=== PATIENT | female | born 1960 | race Two or more races ===

== ENCOUNTER → 2017-08-12 | Outpatient (CLI) | payer MEDICAID ==
[~2017-08-12] MED LIST: INSU70IN2; LISI40TA; METF-372; PRAVASTATIN SODIUM 40 MG TAB
== END | disposition home or self-care (01) ==
LOC: Rad HDHVI 10:02
PROVIDERS: ATTEND Internal Medicine Cardiovascular Disease
DX: R07.89 Other chest pain (principal); R94.31 Abnormal electrocardiogram [ECG] [EKG]
CPT/HCPCS: 93306

== ENCOUNTER → 2017-08-22 | Outpatient (CLI) | payer MEDICAID ==
[~2017-08-22] VITALS: Ht 30.5 cm; Wt 0.5 kg
[~2017-08-22] MED LIST changes: +ADENOSINE 102 MG in GIVE UN-DILUTED 0 ML IV ONE; +ADENOSINE 90 MG/30 ML INJ IV ONE
== END | disposition home or self-care (01) ==
LOC: Rad HDHVI 08:35
PROVIDERS: ATTEND Internal Medicine Cardiovascular Disease
DX: I20.9 Angina pectoris, unspecified (principal); M25.511 Pain in right shoulder; R06.02 Shortness of breath; R42 Dizziness and giddiness; R07.89 Other chest pain; I10 Essential (primary) hypertension; E11.9 Type 2 diabetes mellitus without complications; Z79.4 Long term (current) use of insulin
CPT/HCPCS: 78452; 93005; 96374; 96375; A9500; J0153

== ENCOUNTER 2018-03-13 18:05 | Observation (INO) | payer MEDICAID ==
[~2018-03-13] VITALS: Ht 165.1 cm; Wt 122.5 kg
[~2018-03-13 18:05] MED LIST changes: -ADENOSINE 102 MG in GIVE UN-DILUTED 0 ML IV ONE; -ADENOSINE 90 MG/30 ML INJ IV ONE
[2018-03-13 19:05] LABS: Basophils # (auto) 0 uL; Basophils % (auto) 0.5 % (0.0-2.0); Eosinophils # (auto) 0.1 uL; Eosinophils % (auto) 1.2 % (0.0-7.0); Hematocrit 35.3 % (36.0-46.0); Hemoglobin 11.4 g/dL (12.2-16.2); Lymphocytes # (auto) 3.2 uL; Lymphocytes % (auto) 40.6 % (10.0-50.0); Mean Corpuscular Hemoglobin 27.1 pg (28.0-32.0); Mean Corpuscular Hgb Conc. 32.4 g/dL (32.0-36.0); Mean Corpuscular Volume 83.6 fL (80.0-100.0); Monocytes # (auto) 0.6 uL; Monocytes % (auto) 7.8 % (0.0-12.0); Neutrophils # (auto) 3.9 uL; Neutrophils % (auto) 49.9 % (37.0-80.0); Nucleated Red Blood Cells % 0.1 %; Platelet Count (auto) 300 10^3/uL (140-450); Red Blood Cells 4.22 10^6/uL (4.0-5.20); Red Cell Distribution Width 15.1 % (11.8-14.3); White Blood Cell 7.9 10^3/uL (4.4-10.8)
[2018-03-13 19:10] LABS: Urine Bacteria NONE SEEN /hpf (None Seen); Urine Blood Negative /uL (Negative); Urine Mucus FEW (None Seen); Urine Specific Gravity 1.014 (1.001-1.035); Urine WBC 1 /hpf (0 - 5)
[2018-03-13 19:21] LABS: Albumin 3.4 g/dL (3.4-5.0); BUN/Creatinine Ratio 14.6; Bilirubin, Total 0.6 mg/dL (0.2-1.0); Calcium 8.8 mg/dL (8.5-10.1); Magnesium 1.6 mg/dL (1.6-2.6); Potassium 3.7 mmol/L (3.5-5.1); Total Protein 7.8 g/dL (6.4-8.2)
[2018-03-14 03:32] VITALS: BP 144/60
== END 2018-03-14 05:06 | disposition home or self-care (01) | DRG 251 ==
LOC: ER 18:05 → OVERFLOW 18:06 → ER 03-14 05:06
PROVIDERS: ADMIT Emergency Medicine; ATTEND Emergency Medicine
DX: R10.9 Unspecified abdominal pain (principal); E11.9 Type 2 diabetes mellitus without complications; K29.00 Acute gastritis without bleeding; I10 Essential (primary) hypertension; E78.5 Hyperlipidemia, unspecified; Z82.3 Family history of stroke; Z82.49 Family history of ischemic heart disease and other diseases of the circulatory system; Z83.3 Family history of diabetes mellitus; Z90.710 Acquired absence of both cervix and uterus
CPT/HCPCS: 36415; 74176; 80053; 81001; 82150; 82962; 83690; 83735; 85025; 93005; 99285; G0378

== ENCOUNTER → 2018-05-16 12:58 | Emergency (ER) | payer MEDICAID ==
[~2018-05-16] VITALS: Ht 165.1 cm; Wt 122.2 kg
[~2018-05-16 12:58] MED LIST changes: +KETOROLAC TROMETH 30 MG/ML 1ML VIAL IV ONE; +ONDANSETRON HCL 4 MG/2 ML VIAL IV ONE; +SODIUM CHLORIDE 0.9% 1,000 ML IVB ONE; +cefTRIAXone 1GM/50ML D5W 50 ML IV ONE
[2018-05-16 13:41] LABS: Urine Bacteria FEW /hpf (None Seen); Urine Blood Negative /uL (Negative); Urine Hyaline Cast FEW /lpf (0 - 2); Urine Mucus FEW (None Seen); Urine Specific Gravity 1.021 (1.001-1.035); Urine WBC 1 /hpf (0 - 5)
[2018-05-16 13:59] LABS: Basophils # (auto) 0 uL; Basophils % (auto) 0.5 % (0.0-2.0); Eosinophils # (auto) 0 uL; Eosinophils % (auto) 0.6 % (0.0-7.0); Hemoglobin 10.9 g/dL (12.2-16.2); Lymphocytes # (auto) 2.6 uL; Monocytes # (auto) 0.6 uL; Neutrophils # (auto) 3.4 uL; Neutrophils % (auto) 50.9 % (37.0-80.0); Nucleated Red Blood Cells % 0.1 %; Platelet Count (auto) 334 10^3/uL (140-450); Red Cell Distribution Width 16.3 % (11.8-14.3); White Blood Cell 6.8 10^3/uL (4.4-10.8)
[2018-05-16 14:03] LABS: Mean Corpuscular Hemoglobin 25.4 pg (28.0-32.0)
[2018-05-16 14:11] LABS: Alanine Aminotransferase 60 U/L (13-56); Albumin 3.4 g/dL (3.4-5.0); Anion Gap 9 (5-15); Blood Urea Nitrogen 21 mg/dL (7-18); Carbon Dioxide 23 mmol/L (21-32); Chloride 102 mmol/L (98-107); Glucose 241 mg/dL (74-106); INR 1.01 (0.9-1.15); Lipase 95 U/L (73-393); Partial Thromboplastin Time 25.5 sec (23.78-33.04); Prothrombin Time 10.8 sec (9.27-12.13); Sodium 134 mmol/L (136-145)
[2018-05-16 14:18] LABS: Alkaline Phosphatase 107 U/L (45-117); Aspartate Aminotransferase 49 U/L (15-37); BUN/Creatinine Ratio 22.8; Bilirubin, Total 0.5 mg/dL (0.2-1.0); GFR African American 81 mL/min; GFR Non-African American 67 mL/min; Total Protein 7.9 g/dL (6.4-8.2)
[2018-05-16 19:15] VITALS: BP 98/58
== END | disposition home or self-care (01) ==
LOC: ER 12:58
DX: N39.0 Urinary tract infection, site not specified (principal); D50.9 Iron deficiency anemia, unspecified; R94.5 Abnormal results of liver function studies; E11.9 Type 2 diabetes mellitus without complications; E78.5 Hyperlipidemia, unspecified; I10 Essential (primary) hypertension; Z90.49 Acquired absence of other specified parts of digestive tract; Z90.710 Acquired absence of both cervix and uterus; Z79.899 Other long term (current) drug therapy; Z79.84 Long term (current) use of oral hypoglycemic drugs
CPT/HCPCS: 36415; 71045; 74176; 80053; 81001; 82962; 83690; 83735; 84484; 85025; 85610; 85730; 93005; 94761; 96361; 96365; 96366; 96375; 99284; J0696; J1885; J2405; J7030

== ENCOUNTER 2019-05-18 14:08 | Emergency (ER) | payer MEDICAID ==
[~2019-05-18] VITALS: Ht 165.1 cm; Wt 108.9 kg
[~2019-05-18 14:08] MED LIST changes: -KETOROLAC TROMETH 30 MG/ML 1ML VIAL IV ONE; -ONDANSETRON HCL 4 MG/2 ML VIAL IV ONE; -SODIUM CHLORIDE 0.9% 1,000 ML IVB ONE; -cefTRIAXone 1GM/50ML D5W 50 ML IV ONE
[2019-05-18] MEDS ORDERED: SODIUM CHLORIDE 0.9% 500 ML IVB ONE (14:26)
[2019-05-18] MEDS ORDERED: ONDANSETRON HCL 4 MG/2 ML VIAL IV ONE (14:30)
[2019-05-18] MEDS ORDERED: MORPHINE SULFATE 4 MG/ML SYR/VIAL IV ONE (14:30)
[2019-05-18 15:00] LABS: Basophils # (auto) 0 uL; Basophils % (auto) 0.5 % (0.0-2.0); Eosinophils # (auto) 0.1 uL; Hematocrit 38.2 % (36.0-46.0); Hemoglobin 12.6 g/dL (12.2-16.2); Lymphocytes # (auto) 2.7 uL; Lymphocytes % (auto) 36.9 % (10.0-50.0); Mean Corpuscular Hemoglobin 27.3 pg (28.0-32.0); Mean Corpuscular Hgb Conc. 33.1 g/dL (32.0-36.0); Mean Corpuscular Volume 82.7 fL (80.0-100.0); Monocytes # (auto) 0.7 uL; Monocytes % (auto) 9.5 % (0.0-12.0); Neutrophils # (auto) 3.8 uL; Neutrophils % (auto) 52.1 % (37.0-80.0); Nucleated Red Blood Cells % 0.1 %; Platelet Count (auto) 218 10^3/uL (140-450); Red Blood Cells 4.62 10^6/uL (4.0-5.20); Red Cell Distribution Width 16.5 % (11.8-14.3); White Blood Cell 7.2 10^3/uL (4.4-10.8)
[2019-05-18 15:17] LABS: Alanine Aminotransferase 28 U/L (13-56); Albumin 3.2 g/dL (3.4-5.0); Anion Gap 6 (5-15); Aspartate Aminotransferase 24 U/L (15-37); BUN/Creatinine Ratio 12.1; Blood Urea Nitrogen 12 mg/dL (7-18); Calcium 8.8 mg/dL (8.5-10.1); Carbon Dioxide 27 mmol/L (21-32); Chloride 108 mmol/L (98-107); GFR African American 74 mL/min; GFR Non-African American 61 mL/min; Glucose 99 mg/dL (74-106); Potassium 3.5 mmol/L (3.5-5.1); Sodium 141 mmol/L (136-145)
[2019-05-18 15:23] LABS: Alkaline Phosphatase 147 U/L (45-117); Bilirubin, Total 0.5 mg/dL (0.2-1.0); Total Protein 7.5 g/dL (6.4-8.2)
[2019-05-18 17:37] VITALS: BP 148/62
== END 2019-05-18 17:41 | disposition home or self-care (01) ==
LOC: ER 14:08
DX: R10.32 Left lower quadrant pain (principal); R10.12 Left upper quadrant pain; E66.01 Morbid (severe) obesity due to excess calories
CPT/HCPCS: 36415; 74176; 80053; 83690; 84484; 85025; 93005; 96374; 99284; J2405

== ENCOUNTER 2024-03-23 12:20 | Emergency (ER) | payer MEDICAID ==
[~2024-03-23] VITALS: Ht 165.1 cm; Wt 121.8 kg
[~2024-03-23 12:20] MED LIST changes: -LISI40TA; +LISI40TA16
[2024-03-23 13:30] VITALS: BP 134/70; PULSE 82; RESP 17; TEMP 97.9; O2SAT 95
[2024-03-23] MEDS: KETOROLAC TROMETH 30 MG/ML 1ML VIAL IV ONE (13:30)
[2024-03-23 13:39] LABS: Basophils # (auto) 0 10 ^3/uL (0-0.2); Basophils % (auto) 0.8 % (0.0-2.0); Eosinophils # (auto) 0.1 10 ^3/uL (0-0.8); Eosinophils % (auto) 2.1 % (0.0-7.0); Hematocrit 37.6 % (36.0-46.0); Hemoglobin 12.9 g/dL (12.2-16.2); Lymphocytes # (auto) 1.9 10 ^3/uL (0.4-5.4); Lymphocytes % (auto) 39.6 % (10.0-50.0); Mean Corpuscular Hgb Conc. 34.3 g/dL (32.0-36.0); Mean Corpuscular Volume 96.4 fL (80.0-100.0); Monocytes # (auto) 0.5 10 ^3/uL (0-1.3); Monocytes % (auto) 11.1 % (0.0-12.0); Neutrophils # (auto) 2.2 10 ^3/uL (1.6-8.6); Neutrophils % (auto) 46.4 % (37.0-80.0); Nucleated Red Blood Cells % 0.1 %; Platelet Count (auto) 194 10^3/uL (140-450); Red Cell Distribution Width 16.1 % (11.8-14.3); White Blood Cell 4.7 10^3/uL (4.4-10.8)
[2024-03-23 13:52] LABS: Alanine Aminotransferase 109 U/L (7-40); Alkaline Phosphatase 92 U/L (46-116); Anion Gap 9 (5-15); Aspartate Aminotransferase 98 U/L (13-40); BUN/Creatinine Ratio 15.4 (10.0-20.0); Blood Urea Nitrogen 16 mg/dL (9-23); Calcium 9.4 mg/dL (8.7-10.4); Carbon Dioxide 25 mmol/L (20-31); Chloride 104 mmol/L (98-107); Glucose 214 mg/dL (74-106); Potassium 3.6 mmol/L (3.5-5.1); Sodium 138 mmol/L (136-145)
[2024-03-23] MEDS: KETOROLAC TROMETH 60MG/2ML VIAL IM ONE (13:59)
[2024-03-23] MEDS ORDERED: NAP500T GT (14:03)
[2024-03-23 14:22] LABS: Urine Bacteria FEW /hpf (None Seen); Urine Blood Negative /uL (Negative); Urine Clarity Turbid (Clear); Urine Color Light-Yellow (Yellow); Urine Hyaline Cast FEW /lpf (0 - 2); Urine Mucus FEW (None Seen); Urine Protein, UAD Negative (Negative); Urine Specific Gravity 1.015 (1.001-1.035); Urine Urobilinogen Normal (Negative); Urine WBC 105 /hpf (0 - 5)
[2024-03-23] MEDS ORDERED: CEPH250C PO (14:41)
[2024-03-24] MEDS ORDERED: LOSA-534 PO (13:13)
[2024-03-24] MEDS ORDERED: HYDR25TA5 PO (13:13)
[2024-03-24] MEDS ORDERED: ZOLP10TA6 PO (13:13)
[2024-03-24] MEDS ORDERED: ISO20T PO (13:13)
[2024-03-24] MEDS ORDERED: OMEP1CAP70 PO (13:13)
[2024-03-24] MEDS ORDERED: ATOR20TA50 PO (13:13)
== END 2024-03-23 16:14 | disposition home or self-care (01) ==
LOC: ER 12:20
DX: R10.9 Unspecified abdominal pain (principal); I10 Essential (primary) hypertension; E11.9 Type 2 diabetes mellitus without complications; E78.5 Hyperlipidemia, unspecified; Z90.49 Acquired absence of other specified parts of digestive tract; Z90.710 Acquired absence of both cervix and uterus; Z79.1 Long term (current) use of non-steroidal anti-inflammatories (NSAID); Z79.899 Other long term (current) drug therapy
CPT/HCPCS: 36415; 74176; 80053; 81001; 85025; 96372; 99285; J1885

== ENCOUNTER 2024-03-24 09:10 | Inpatient (IN) | payer MEDICAID ==
[~2024-03-24] VITALS: Ht 165.1 cm; Wt 127.9 kg
[~2024-03-24 09:10] MED LIST changes: +CEPH250C PO; +NAP500T GT
[2024-03-24 10:21] VITALS: PULSE 80; RESP 18; O2SAT 98
[2024-03-24] MEDS: ACETAMINOPHEN 325 MG TAB PO ONE (10:37)
[2024-03-24 10:39] LABS: Basophils # (auto) 0 10 ^3/uL (0-0.2); Basophils % (auto) 0.3 % (0.0-2.0); Eosinophils # (auto) 0 10 ^3/uL (0-0.8); Eosinophils % (auto) 0.3 % (0.0-7.0); Hemoglobin 12.5 g/dL (12.2-16.2); Lymphocytes # (auto) 1.4 10 ^3/uL (0.4-5.4); Lymphocytes % (auto) 12.8 % (10.0-50.0); Mean Corpuscular Hemoglobin 33.1 pg (28.0-32.0); Mean Corpuscular Hgb Conc. 34.6 g/dL (32.0-36.0); Mean Corpuscular Volume 95.7 fL (80.0-100.0); Monocytes # (auto) 0.8 10 ^3/uL (0-1.3); Monocytes % (auto) 7.3 % (0.0-12.0); Neutrophils # (auto) 8.6 10 ^3/uL (1.6-8.6); Neutrophils % (auto) 79.3 % (37.0-80.0); Platelet Count (auto) 159 10^3/uL (140-450); Red Blood Cells 3.76 10^6/uL (4.0-5.20); White Blood Cell 10.8 10^3/uL (4.4-10.8)
[2024-03-24 10:51] LABS: Chloride 104 mmol/L (98-107); Potassium 3.6 mmol/L (3.5-5.1); Sodium 139 mmol/L (136-145)
[2024-03-24 10:52] LABS: Anion Gap 10 (5-15); Carbon Dioxide 25 mmol/L (20-31)
[2024-03-24 10:57] LABS: BUN/Creatinine Ratio 23.7 (10.0-20.0); Blood Urea Nitrogen 22 mg/dL (9-23); Glucose 206 mg/dL (74-106)
[2024-03-24] MEDS ORDERED: DEXTROSE (50%) 50ML SYRG IV PRN (12:15)
[2024-03-24] MEDS ORDERED: MORPHINE SULFATE INJ 2 MG/ml SYRG IV PRN (12:15)
[2024-03-24] MEDS ORDERED: NITROGLYCERIN 0.4 MG SL TAB SL PRN (12:15)
[2024-03-24] MEDS ORDERED: HYDR25TA5 PO (13:13)
[2024-03-24] MEDS ORDERED: ZOLP10TA6 PO (13:13)
[2024-03-24] MEDS ORDERED: LOSA-534 PO (13:13)
[2024-03-24] MEDS ORDERED: OMEP1CAP70 PO (13:13)
[2024-03-24] MEDS ORDERED: ISO20T PO (13:13)
[2024-03-24] MEDS ORDERED: ATOR20TA50 PO (13:13)
[2024-03-24] MEDS: ACETAMINOPHEN 325 MG TAB PO PRN (17:24)
[2024-03-24] MEDS: InsuLIN REG 1unit/0.01ml Soln (100units/ml) SC SCH ×2 (17:36→21:42)
[2024-03-24] MEDS: ACCU-CHEK COMFORT CURVE STRIP VI SCH (17:40)
[2024-03-24] MEDS: CEPHALEXIN 250 MG CAP PO SCH (18:20)
[2024-03-24] MEDS ORDERED: MORPHINE SULFATE 4 MG/ML SYR/VIAL IV ONE (18:30)
[2024-03-24] MEDS ORDERED: KETOROLAC TROMETH 30 MG/ML 1ML VIAL IV ONE (18:30)
[2024-03-24] MEDS: ZOLPIDEM TARTRATE 5 MG TAB PO ONE (21:36)
[2024-03-24] MEDS: ATORVASTATIN 20 MG TAB PO SCH (21:36)
[2024-03-24 23:06] VITALS: BP 128/59; PULSE 65; RESP 18; RESP 20; TEMP 98; O2SAT 94; O2SAT 95
[2024-03-25] VITALS (10 sets, daily range): BP systolic 102–112; BP diastolic 38–57; PULSE 64–81; RESP 18–21; TEMP 97.9–98.3; O2SAT 92–99
[2024-03-25] MEDS: HYDROcodone-ACET 5/325MG TAB PO PRN (01:50)
[2024-03-25] MEDS: PANTOPRAZOLE 40 MG TAB PO SCH (05:41)
[2024-03-25 05:49] LABS: Anion Gap 5 (5-15); Carbon Dioxide 29 mmol/L (20-31); Chloride 105 mmol/L (98-107); Potassium 3.3 mmol/L (3.5-5.1); Sodium 139 mmol/L (136-145)
[2024-03-25 05:50] LABS: Calcium 9.3 mg/dL (8.7-10.4)
[2024-03-25 05:55] LABS: BUN/Creatinine Ratio 16.7 (10.0-20.0); Blood Urea Nitrogen 13 mg/dL (9-23); Glucose 163 mg/dL (74-106)
[2024-03-25 06:01] LABS: Basophils # (auto) 0 10 ^3/uL (0-0.2); Basophils % (auto) 0.3 % (0.0-2.0); Eosinophils # (auto) 0.2 10 ^3/uL (0-0.8); Eosinophils % (auto) 1.7 % (0.0-7.0); Hematocrit 35.2 % (36.0-46.0); Hemoglobin 12.3 g/dL (12.2-16.2); Lymphocytes # (auto) 2.6 10 ^3/uL (0.4-5.4); Lymphocytes % (auto) 29.4 % (10.0-50.0); Mean Corpuscular Hemoglobin 33.5 pg (28.0-32.0); Mean Corpuscular Hgb Conc. 35.1 g/dL (32.0-36.0); Mean Corpuscular Volume 95.6 fL (80.0-100.0); Monocytes # (auto) 0.3 10 ^3/uL (0-1.3); Monocytes % (auto) 3.4 % (0.0-12.0); Neutrophils # (auto) 5.7 10 ^3/uL (1.6-8.6); Neutrophils % (auto) 65.2 % (37.0-80.0); Nucleated Red Blood Cells % 0.1 %; Platelet Count (auto) 166 10^3/uL (140-450); Red Blood Cells 3.68 10^6/uL (4.0-5.20); White Blood Cell 8.8 10^3/uL (4.4-10.8)
[2024-03-25] MEDS: ISOSORBIDE MONONITRATE 20 MG TAB PO SCH (10:02)
[2024-03-25] MEDS: hydroCHLOROthiazide 25 MG TAB PO SCH (10:02)
[2024-03-25] MEDS: LOSARTAN POTASSIUM 50 MG TAB PO SCH (10:02)
[2024-03-25] MEDS: ACETAMINOPHEN 325 MG TAB PO SCH (17:21)
[2024-03-25] MEDS: POTASSIUM CHL 20 Meq TABLET PO ONE (17:21)
[2024-03-25] MEDS ORDERED: IBUPROFEN 400 MG TAB PO PRN (18:00)
[2024-03-25] MEDS: ONDANSETRON HCL 4 MG/2 ML VIAL IV PRN (21:00)
[2024-03-26] VITALS (10 sets, daily range): BP systolic 111–125; BP diastolic 41–61; PULSE 60–67; RESP 17–20; TEMP 36.5; O2SAT 94–99
[2024-03-26 07:32] LABS: Calcium 9.4 mg/dL (8.7-10.4); Chloride 103 mmol/L (98-107); Sodium 136 mmol/L (136-145)
[2024-03-26 07:33] LABS: Anion Gap 6 (5-15); Carbon Dioxide 27 mmol/L (20-31)
[2024-03-26 07:38] LABS: BUN/Creatinine Ratio 13.9 (10.0-20.0); Blood Urea Nitrogen 11 mg/dL (9-23); Glucose 232 mg/dL (74-106)
[2024-03-26 07:40] LABS: Basophils # (auto) 0 10 ^3/uL (0-0.2); Basophils % (auto) 0.7 % (0.0-2.0); Eosinophils # (auto) 0.3 10 ^3/uL (0-0.8); Eosinophils % (auto) 4.2 % (0.0-7.0); Hematocrit 36.4 % (36.0-46.0); Hemoglobin 12.4 g/dL (12.2-16.2); Lymphocytes # (auto) 2.1 10 ^3/uL (0.4-5.4); Lymphocytes % (auto) 35.4 % (10.0-50.0); Mean Corpuscular Hemoglobin 33.1 pg (28.0-32.0); Mean Corpuscular Hgb Conc. 34.1 g/dL (32.0-36.0); Mean Corpuscular Volume 97.2 fL (80.0-100.0); Monocytes # (auto) 0.4 10 ^3/uL (0-1.3); Monocytes % (auto) 6.5 % (0.0-12.0); Neutrophils # (auto) 3.2 10 ^3/uL (1.6-8.6); Neutrophils % (auto) 53.2 % (37.0-80.0); Nucleated Red Blood Cells % 0.2 %; Platelet Count (auto) 181 10^3/uL (140-450); Red Blood Cells 3.75 10^6/uL (4.0-5.20); Red Cell Distribution Width 16.2 % (11.8-14.3)
[2024-03-26] MEDS: METOCLOPRAMIDE HCL 10 MG TAB PO ONE (09:47)
[2024-03-26] MEDS: IBUPROFEN 400 MG TAB PO ONE (09:48)
[2024-03-26] MEDS: GABAPENTIN 300 MG CAP PO SCH (09:48)
[2024-03-26] MEDS ORDERED: IBUP1TAB4 PO (16:34)
[2024-03-26] MEDS ORDERED: ACET-1882 PO (16:34)
[2024-03-26] MEDS ORDERED: METO5TAB67 PO (16:34)
== END 2024-03-26 17:35 | disposition home or self-care (01) | DRG 48 ==
LOC: EDBD 09:10 → ER 09:10 → TELE 12:03 → TELE-WESTW 22:55
PROVIDERS: ADMIT Registered Nurse General Practice; ATTEND Student in an Organized Health Care Education/Training Program
PROC: 5A09357 Assistance with Respiratory Ventilation, Less than 24 Consecutive Hours, Continuous Positive Airway Pressure (ICD-10-PCS; principal; 2024-03-25)
DX: G90.89 Other disorders of autonomic nervous system (principal); S09.90XA Unspecified injury of head, initial encounter; E66.9 Obesity, unspecified; I10 Essential (primary) hypertension; K21.9 Gastro-esophageal reflux disease without esophagitis; G47.00 Insomnia, unspecified; E78.5 Hyperlipidemia, unspecified; S16.1XXA Strain of muscle, fascia and tendon at neck level, initial encounter; N39.0 Urinary tract infection, site not specified; W18.39XA Other fall on same level, initial encounter; Z90.49 Acquired absence of other specified parts of digestive tract; Z90.710 Acquired absence of both cervix and uterus; Z79.84 Long term (current) use of oral hypoglycemic drugs; Z68.42 Body mass index [BMI] 45.0-49.9, adult; Y93.89 Activity, other specified; Y92.89 Other specified places as the place of occurrence of the external cause; Y99.8 Other external cause status
CPT/HCPCS: 36415; 70450; 72125; 80048; 82962; 84484; 85025; 93005; 94660; 96372; G0378; J1815; J2405

== ENCOUNTER 2024-11-08 18:03 | Inpatient (IN) | payer MEDICAID, OTHER ==
[~2024-11-08] VITALS: Ht 165.1 cm; Wt 117.2 kg
[~2024-11-08 18:03] MED LIST changes: +ACET-1882 PO; +ATOR20TA50 PO; +HYDR25TA5 PO; +IBUP1TAB4 PO; +ISO20T PO; +LOSA-534 PO; +METO5TAB67 PO; -NAP500T GT; +OMEP1CAP70 PO; +ZOLP10TA6 PO
--- NOTE | 2024-11-08 18:15 | ED.PDOC ---
GI ASSESSMENT HPI Comments 64 y.o female presents to the ED via EMS for a chief complaint of nausea, vomiting, diarrhea, abdominal pain that started 3 days ago. Patient reports pain is diffused, constant, and presents with new onset chest pain and SOB today. Patient denies any bloody stool, hematemesis, chills. EMS reports blood pressure was in the 90's systolic, gave 100cc IV fluids bringing pressure up to 123/88. Patient also received 8mg IV Zofran en route with relief. Time Seen by MD: 18:03 Reviewed Notes: Nurses Notes, Staff Sonographer Notes, Medications, Allergies Allergies: Coded Allergies: NO KNOWN ALLERGIES (Unverified , 11/08/24) Information Source: Patient, Emergency Med Personnel Mode of Arrival: EMS Timing: Days (3) Duration: Since onset Prehospital treatment: IVF, Treatment (zofran 8mg IV ) Quality: Aching Vomitus: Hard Stool: Loose Severity: Moderate Recent: None Recent Hx of: None Pain Location: Diffuse Modifying Factors: Nothing Associated sign and symptoms: Nausea, Vomiting, Diarrhea, Abdominal Pain Past Medical History PAST MEDICAL HISTORY: DM, GERD, High Lipids, Liver Surgical History: Cholecystectomy, Hysterectomy Surgical History (Other): cataracts MANAGER SALES SUPPORT History: No Pertinent MANAGER SALES SUPPORT History Family History Family History: Family hx of Cancer Social History Smoker: Non-Smoker Alcohol: Denies ETOH Use Drugs: Denies Drug Use Lives In: Home Constitutional: reports: weakness; denies: chills, diaphoresis, fatigue, fever, malaise, sweats, others EENTM: denies: blurred vision, double vision, ear bleeding, ear discharge, ear drainage, ear pain, ear ringing, eye pain, eye redness, hearing loss, mouth pain, mouth swelling, nasal discharge, nose bleeding, nose congestion, nose pain, photophobia, tearing, throat pain, throat swelling, voice changes, others Respiratory: reports: shortness of breath; denies: cough, hemoptysis, orthopnea, SOB at rest, SOB with excertion, stridor, wheezing, others Cardiovascular: reports: chest pain; denies: dizzy spells, diaphoresis, Dyspnea on exertion, edema, irregular heart beat, left arm pain, lightheadedness, palpitations, PND, syncope, others Gastrointestinal: reports: abdominal pain, diarrhea, nausea, vomiting; denies: abdomen distended, blood streaked bowels, constipated, dysphagia, difficulty swallowing, hematemesis, melena, poor appetite, poor fluid intake, rectal bleeding, rectal pain, others Genitourinary: denies: abnormal vagina bleeding, burning, dyspareunia, dysuria, flank pain, frequency, hematuria, incontinence, pain, , vagina discharge, urgency, others Neurological: denies: dizziness, fainting, headache, left sided numbness, left sided weakness, numbness, paresthesia, pre-existing deficit, right sided numbness, right sided weakness, seizure, speech problems, tingling, tremors, we akness, others Musculoskeletal: denies: back pain, gout, joint pain, joint swelling, muscle pain, muscle stiffness, neck pain, others Integumetry: denies: bruises, change in color, change in hair/nails, dryness, laceration, lesions, lumps, rash, wounds, others Allergic/Immunocompromised: denies: Difficulty Healing, Frequent Infections, Hives, Itching, others Hematologic/Lymphatic: denies: anemia, blood clots, easy bleeding, easy bruising, swollen glands, others Endocrine: denies: excessive hunger, excessive sweating, excessive thirst, excessive urination, flushing, intolerance to cold, intolerance to heat, unexplained weight gain, unexplained weight loss, others Psychiatric: denies: anxiety, bipolar disorder, depression, hopeless, panic disorder, schizophrenia, sleepless, suicidal, others All Other Systems: Reviewed and Negative Physical Exam General Appearance: Moderate Distress, Obese HEENT: Normal ENT Inspection, Pharynx Normal, TMs Normal Neck: Full Range of Motion, Non-Tender, Normal, Normal Inspection Respiratory: Chest Non-Tender, Lungs Clear, No Accessory Muscle Use, No Respiratory Distress, Normal Breath Sounds Cardiovascular: No Edema, No JVD, No Murmur, No Gallop, Normal Peripheral Pulses, Regular Rate/Rhythm Breast Exam: Deferred Gastrointestinal: Diffuse, No Organomegaly, No Pulsatile Mass, Normal Bowel Sounds, Soft, Tenderness Genitalia: Deferred Pelvic: Deferred Rectal: Deferred Extremities: No calf tenderness, Normal capillary refill, Normal inspection, Normal range of motion, Non-tender, No pedal edema Musculoskeletal : Apperance: Normal Neurologic: Alert, 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 Was a procedure done?: No GI differential Dx Differential Diagnosis: Angina/MT, Esophagitis, Gastritis/PUD, Gastroenteritis, Inflammatory BD, Pancreatitis, Dehydration, Electrolyte Imbalance, Food Poisoning, Bacterial, Viral X-Ray, Labs, Meds, VS Vital Signs Date Time Temp Pulse Resp B/P (MAP) Pulse Ox O2 Delivery O2 Flow Rate FiO2 11/08/24 20:10 98.0 74 16 121/72 (88) 97 98.0 11/08/24 18:38 73 11/08/24 18:11 73 11/08/24 18:03 97.5 72 16 123/88 (100) 97 97.5 11/08/24 18:03 97.5 72 16 123/88 (100) 97 97.5 Lab Test 11/08/24 18:19 Range/Units White Blood Count 7.4 4.4-10.8 10^3/uL Red Blood Count 3.72 L 4.0-5.20 10^6/uL Hemoglobin 12.4 12.2-16.2 g/dL Hematocrit 36.6 36.0-46.0 % Mean Corpuscular Volume 98.5 80.0-100.0 fL Mean Corpuscular Hemoglobin 33.3 H 28.0-32.0 pg Mean Corpuscular Hemoglobin Concent 33.8 32.0-36.0 g/dL Red Cell Distribution Width 13.9 11.8-14.3 % Platelet Count 215 140-450 10^3/uL Mean Platelet Volume 9.8 6.9-10.8 fL Neutrophils (%) (Auto) 53.3 37.0-80.0 % Lymphocytes (%) (Auto) 34.7 10.0-50.0 % Monocytes (%) (Auto) 9.6 0.0-12.0 % Eosinophils (%) (Auto) 1.7 0.0-7.0 % Basophils (%) (Auto) 0.7 0.0-2.0 % Neutrophils # (Auto) 3.9 1.6-8.6 10 ^3/uL Lymphocytes # (Auto) 2.6 0.4-5.4 10 ^3/uL Monocytes # (Auto) 0.7 0-1.3 10 ^3/uL Eosinophils # (Auto) 0.1 0-0.8 10 ^3/uL Basophils # (Auto) 0.1 0-0.2 10 ^3/uL Nucleated Red Blood Cells 0.1 % Prothrombin Time 12.0 H 9.3-11.8 sec Prothrombin Time INR 1.15 0.9-1.15 Activated Partial Thromboplast Time 25.5 24.5-34.5 SEC Sodium Level 142 136-145 mmol/L Potassium Level 2.7 L 3.5-5.1 mmol/L Chloride Level 106 98-107 mmol/L Carbon Dioxide Level 24 20-31 mmol/L Anion Gap 12 5-15 Blood Urea Nitrogen 12 9-23 mg/dL Creatinine 1.28 H 0.550-1.02 mg/dL Glomerular Filtration Rate Calc 47 >90 mL/min BUN/Creatinine Ratio 9.4 L 10.0-20.0 Serum Glucose 76 74-106 mg/dL Calcium Level 8.6 L 8.7-10.4 mg/dL Total Bilirubin 0.7 0.2-1.0 mg/dL Aspartate Amino Transferase (AST) 48 H 13-40 U/L Alanine Aminotransferase (ALT) 26 7-40 U/L Alkaline Phosphatase 70 46-116 U/L Ammonia 20 11-32 umol/L Total Protein 6.6 5.7-8.2 g/dL Albumin 3.8 3.2-4.8 g/dL Lipase 36 12-53 U/L Current Medications Medications (Trade) Dose Ordered Sig/Sobia Route Start Time Stop Time Status Last Admin Sodium Chloride 500 ml @ 500 mls/hr Q1H ONCE IVB 11/08/24 18:15 11/08/24 19:14 DC 11/08/24 19:10 IV Hep-Lock was established The patient was given a normal saline bolus of 500 cc The patient's CBC is within normal limits The chemistry panel shows a creatinine of 1.28 The patient was hypokalemic at 2.7 We are giving the patient potassium IV as well as p.o. The rest of the chemistry panel is within normal limits The CAT scan of the abdomen and pelvis shows: IMPRESSION: Questionable minimal fat stranding adjacent to the pancreatic head. Recommend correlation with lipase. We have reviewed the lipase level which is within normal range as well The patient was being admitted at this time Images Reviewed?: Images reviewed and evaluated by me Time of 1ST Reevaluation: 18:08 Reevaluation 1ST: Unchanged Patient Education/Counseling: Diagnosis, Treatment, Prognosis Family Education/Counseling: No Family Present Departure 1 Departure Time of Disposition: 20:56 Impression: Primary Impression: Intractable abdominal pain Additional Impressions: Acute chest pain Acute coronary syndrome Disposition: ADMITTED INPATIENT Admit to: Med Surg Condition: Fair Critical Care Note Critical Care Time?: Yes (45 min-critical care time only) Stability Stability form required: Yes Unstable for transfer: Telemetry monitoring (Telemetry monitoring required), ED Physician Assesment (Clinical assesment) Heart Score Heart Score: Heart Score Response (Comments) Value History Slightly Suspicious 0 EKG Repolarization Disturb 1 Age 45-64 1 Risk Factors >3 or Hx ASHD 2 Troponin Normal limit 0 Total 4 I personally scribed for JACINTA BARROS MD ([email or web address]) on 11/08/24 at 18:15. Electronically submitted by Katherine Doshi ([facility]). JACINTA BARROS MD November 08, 2024 18:15
[2024-11-08 18:38] LABS: Basophils # (auto) 0.1 10 ^3/uL (0-0.2); Basophils % (auto) 0.7 % (0.0-2.0); Eosinophils # (auto) 0.1 10 ^3/uL (0-0.8); Eosinophils % (auto) 1.7 % (0.0-7.0); Hematocrit 36.6 % (36.0-46.0); Hemoglobin 12.4 g/dL (12.2-16.2); Lymphocytes # (auto) 2.6 10 ^3/uL (0.4-5.4); Lymphocytes % (auto) 34.7 % (10.0-50.0); Mean Corpuscular Hemoglobin 33.3 pg (28.0-32.0); Mean Corpuscular Hgb Conc. 33.8 g/dL (32.0-36.0); Mean Corpuscular Volume 98.5 fL (80.0-100.0); Monocytes # (auto) 0.7 10 ^3/uL (0-1.3); Monocytes % (auto) 9.6 % (0.0-12.0); Neutrophils # (auto) 3.9 10 ^3/uL (1.6-8.6); Neutrophils % (auto) 53.3 % (37.0-80.0); Nucleated Red Blood Cells % 0.1 %; Platelet Count (auto) 215 10^3/uL (140-450); Red Blood Cells 3.72 10^6/uL (4.0-5.20); Red Cell Distribution Width 13.9 % (11.8-14.3); White Blood Cell 7.4 10^3/uL (4.4-10.8)
[2024-11-08 18:53] LABS: Alanine Aminotransferase 26 U/L (7-40); Albumin 3.8 g/dL (3.2-4.8); Alkaline Phosphatase 70 U/L (46-116); Anion Gap 12 (5-15); Aspartate Aminotransferase 48 U/L (13-40); BUN/Creatinine Ratio 9.4 (10.0-20.0); Bilirubin, Total 0.7 mg/dL (0.2-1.0); Blood Urea Nitrogen 12 mg/dL (9-23); Calcium 8.6 mg/dL (8.7-10.4); Carbon Dioxide 24 mmol/L (20-31); Chloride 106 mmol/L (98-107); Glucose 76 mg/dL (74-106); Lipase 36 U/L (12-53); Potassium 2.7 mmol/L (3.5-5.1); Sodium 142 mmol/L (136-145); Total Protein 6.6 g/dL (5.7-8.2)
[2024-11-08 18:55] LABS: INR 1.15 (0.9-1.15); Partial Thromboplastin Time 25.5 SEC (24.5-34.5)
[2024-11-08] MEDS: SODIUM CHLORIDE 0.9% 500 ML IVB ONE (19:10)
--- NOTE | 2024-11-08 19:31 | DVH ---
Exam: CT CT AB PEL WO CON-NO ORAL OR IV History: pain Comparison Study: None TECHNIQUE: Multidetector CT of the abdomen and pelvis without IV contrast. Axial, coronal and sagitta l multiplanar reformats were obtained from the axial data set by the technologist. Radiation Dose Information: CT Dose: CTDI volume is 24.89 mGy. Dose-length product is 1431.43 mGy*cm FINDINGS: Bibasilar atelectasis. Partially visualized heart is unremarkable. Status post cholecystectomy. Liver, spleen and adrenal glands are unremarkable. Questionable minimal fat stranding adjacent to the pancreatic head. Kidneys and Ureters are unremarkable. The urinary bladder is decompressed limiting evaluation with n o gross abnormalities noted. Uterus and adnexa are not definitely visualized. Question hysterectomy. Stomach is unremarkable. Small bowel loops are unremarkable. Appendix is unremarkable. Large bowel i s unremarkable. No evidence of intraperitoneal free air or free fluid. No evidence of aortic aneurysm. Mild atherosclerotic calcification of the aorta. No significant lymphadenopathy. Small fat containing left inguinal hernia. Tiny fat containing umbil ical hernia. Nonspecific Focus of calcification of the left ventral upper abdominal wall. No destruct gustavo osseous lesions noted IMPRESSION: Questionable minimal fat stranding adjacent to the pancreatic head. Recommend correlation with nate bush
[2024-11-08] MEDS: POTASSIUM CHL 20 Meq TABLET PO ONE (21:00)
[2024-11-08] MEDS ORDERED: DEXTROSE (50%) 50ML SYRG IV PRN (22:30)
[2024-11-08] MEDS ORDERED: ONDANSETRON HCL 4 MG/2 ML VIAL IV PRN (22:30)
--- NOTE | 2024-11-08 23:39 | ECG ---
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
[2024-11-09] MEDS: ACCU-CHEK COMFORT CURVE STRIP VI SCH
[2024-11-09] MEDS: InsuLIN REG 1unit/0.01ml Soln (100units/ml) SC SCH
[2024-11-09 00:44] VITALS: O2SAT 99
[2024-11-09] MEDS: SODIUM CHLORIDE 0.9% 1,000 ML IV ONE ×3 (00:55→21:40)
[2024-11-09] MEDS: POTASSIUM CHL 20MEQ/100ML 100 ML IV ONE (01:46)
--- NOTE | 2024-11-09 04:19 | DVHHP2 ---
History of Present Illness Reason for Visit: Abdominal pain History of Present Illness 64-year-old female presents for evaluation of abdominal pain. Patient reports a two day history of lower abdominal pain with associated nausea, vomiting and diarrhea. Patient is currently on Ozempic for weight loss. She reports having these symptoms intermittently since she started taking the medication. Denies fever or chills. No other acute complaints reported. Past Medical History GERD, dyslipidemia, liver disease, diabetes mellitus Past Surgical History Hysterectomy and cholecystectomy Family History Noncontributory Smoke: No ALCOHOL: none Drugs: None Lives: with Family Review of Systems Review of Systems Review of systems are currently negative otherwise addressed in HPI. Allergies: Coded Allergies: NO KNOWN ALLERGIES (Unverified , 11/08/24) Medications Current Medications Medications Dose Ordered Sig/Sobia Route Start Time Stop Time Status Last Admin Dose Admin Isosorbide Dinitrate 20 mg BID PO 11/09/24 10:00 Atorvastatin Calcium 20 mg HS PO 11/09/24 22:00 Losartan Potassium 50 mg DAILY PO 11/09/24 10:00 Gabapentin 300 mg BID PO 11/09/24 10:00 Diagnostic Test (Pha) 1 strip Q6HR 11/09/24 00:00 11/09/24 00:00 1 STRIP Insulin Human Regular Q6HR SC 11/09/24 00:00 Dextrose 50 ml UD PRN IV 11/08/24 22:30 Acetaminophen/ Hydrocodone Bitart 1 tab Q4HP PRN PO 11/08/24 22:30 Ondansetron HCl 4 mg Q4HP PRN IV 11/08/24 22:30 Acetaminophen 650 mg Q6HP PRN PO 11/08/24 22:30 Morphine Sulfate 2 mg Q4HPRN PRN IV 11/08/24 22:30 Pantoprazole Sodium 40 mg DAILY IV 11/09/24 10:00 Exam Vital Signs Vital Signs Date Time Temp Pulse Resp B/P (MAP) Pulse Ox O2 Delivery O2 Flow Rate FiO2 11/08/24 23:00 98.0 70 18 111/43 (65) 96 98.0 Exam Gen: 64-year-old female, morbidly obese Skin: Warm, dry, normal color and texture, no rash. HEENT: Normocephalic atraumatic, mucous membranes moist and pink. Neck: Cervical and supraclavicular nodes normal without enlargement, trachea is midline, thyroid gland is normal without masses. Pulmonary: Clear to auscultation and percussion bilaterally. Cardiac: Regular rate and rhythm. No murmur Abdomen: Soft, lower abdominal tenderness, nondistended, bowel sounds present all 4 quadrants, no guarding, no rigidity, no organomegaly. Extremities: No cyanosis, clubbing, no edema Neuro: Cranial nerves II through XII grossly intact, normal affect and speech, no focal motor deficits. Labs/Xrays ORDERING PHYSICIAN: JACINTA BARROS MD PROCEDURE(s): ABPL - CT AB PEL WO CON-NO ORAL OR IV REASON: pain ORDER NUMBER(s): [id number], ACCESSION NUMBER(s): [id number] Exam: CT CT AB PEL WO CON-NO ORAL OR IV History: pain Comparison Study: None TECHNIQUE: Multidetector CT of the abdomen and pelvis without IV contrast. Axial, coronal and sagittal multiplanar reformats were obtained from the axial data set by the technologist. Radiation Dose Information: CT Dose: CTDI volume is 24.89 mGy. Dose-length product is 1431.43 mGy*cm FINDINGS: Bibasilar atelectasis. Partially visualized heart is unremarkable. Status post cholecystectomy. Liver, spleen and adrenal glands are unremarkable. Questionable minimal fat stranding adjacent to the pancreatic head. Kidneys and Ureters are unremarkable. The urinary bladder is decompressed limiting evaluation with no gross abnormalities noted. Uterus and adnexa are not definitely visualized. Question hysterectomy. Stomach is unremarkable. Small bowel loops are unremarkable. Appendix is unremarkable. Large bowel is unremarkable. No evidence of intraperitoneal free air or free fluid. No evidence of aortic aneurysm. Mild atherosclerotic calcification of the aorta. No significant lymphadenopathy. Small fat containing left inguinal hernia. Tiny fat containing umbilical hernia. Nonspecific Focus of calcification of the left ventral upper abdominal wall. No destructive osseous lesions noted IMPRESSION: Questionable minimal fat stranding adjacent to the pancreatic head. Recommend correlation with lipase. Labs Test 11/09/24 01:03 11/08/24 18:19 Range/Units POC Glucose 116 H 70-106 mg/dl White Blood Count 7.4 4.4-10.8 10^3/uL Red Blood Count 3.72 L 4.0-5.20 10^6/uL Hemoglobin 12.4 12.2-16.2 g/dL Hematocrit 36.6 36.0-46.0 % Mean Corpuscular Volume 98.5 80.0-100.0 fL Mean Corpuscular Hemoglobin 33.3 H 28.0-32.0 pg Mean Corpuscular Hemoglobin Concent 33.8 32.0-36.0 g/dL Red Cell Distribution Width 13.9 11.8-14.3 % Platelet Count 215 140-450 10^3/uL Mean Platelet Volume 9.8 6.9-10.8 fL Neutrophils (%) (Auto) 53.3 37.0-80.0 % Lymphocytes (%) (Auto) 34.7 10.0-50.0 % Monocytes (%) (Auto) 9.6 0.0-12.0 % Eosinophils (%) (Auto) 1.7 0.0-7.0 % Basophils (%) (Auto) 0.7 0.0-2.0 % Neutrophils # (Auto) 3.9 1.6-8.6 10 ^3/uL Lymphocytes # (Auto) 2.6 0.4-5.4 10 ^3/uL Monocytes # (Auto) 0.7 0-1.3 10 ^3/uL Eosinophils # (Auto) 0.1 0-0.8 10 ^3/uL Basophils # (Auto) 0.1 0-0.2 10 ^3/uL Nucleated Red Blood Cells 0.1 % Prothrombin Time 12.0 H 9.3-11.8 sec Prothrombin Time INR 1.15 0.9-1.15 Activated Partial Thromboplast Time 25.5 24.5-34.5 SEC Sodium Level 142 136-145 mmol/L Potassium Level 2.7 L 3.5-5.1 mmol/L Chloride Level 106 98-107 mmol/L Carbon Dioxide Level 24 20-31 mmol/L Anion Gap 12 5-15 Blood Urea Nitrogen 12 9-23 mg/dL Creatinine 1.28 H 0.550-1.02 mg/dL Glomerular Filtration Rate Calc 47 >90 mL/min BUN/Creatinine Ratio 9.4 L 10.0-20.0 Serum Glucose 76 74-106 mg/dL Calcium Level 8.6 L 8.7-10.4 mg/dL Total Bilirubin 0.7 0.2-1.0 mg/dL Aspartate Amino Transferase (AST) 48 H 13-40 U/L Alanine Aminotransferase (ALT) 26 7-40 U/L Alkaline Phosphatase 70 46-116 U/L Ammonia 20 11-32 umol/L Total Protein 6.6 5.7-8.2 g/dL Albumin 3.8 3.2-4.8 g/dL Lipase 36 12-53 U/L Assessment/Plan Assessment/Plan Assessment Acute abdominal pain Hypokalemia Acute kidney injury Admit the patient to Med surge to the hospitalist Clear liquid diet Maintenance IV fluids IV Protonix Resume home medications Continue treatment per orders. Plan discussed with: Patient My Orders Orders - JASS CASTREJON AGACNP Procedure Category Date Status Time Isosorbide Dinitrate PHA 11/09/24 In Process Tablet (Isordil Tab 10:00 Atorvastatin (Lipitor) PHA 11/09/24 In Process 22:00 Losartan Tablet PHA 11/09/24 In Process (Cozaar Tablet) 10:00 Gabapentin Capsule PHA 11/09/24 In Process (Neurontin Capsule) 10:00 Basic Metabolic Panel LAB 11/09/24 Logged 04:00 Glucose Blood PHA 11/09/24 In Process (Accu-Chek Comfort 00:00 Insulin R (Human) PHA 11/09/24 In Process (Insulin R) 00:00 Dextrose 50% Syringe PHA 11/08/24 In Process 22:30 Admit ADMIT 11/08/24 Transmitted 22:25 Hydrocodone-Acet PHA 11/08/24 In Process 5/325mg Tab ([place] 22:30 Ondansetron Hcl PHA 11/08/24 In Process (Zofran) 22:30 Complete Blood Count LAB 11/09/24 Logged 04:00 Condition: Stable LESLYE 11/08/24 In Process 22:25 Acetaminophen Tablet PHA 11/08/24 In Process (Tylenol Tablet) 22:30 Clear Liq Diet DIET 11/09/24 Transmitted Breakfast Bedrest With Bathroom LESLYE 11/08/24 In Process Privileg 22:25 Morphine Sulfate PHA 11/08/24 In Process Injection 22:30 Sodium Chloride 0.9% PHA 11/08/24 In Process 22:30 Pantoprazole PHA 11/09/24 In Process (Protonix) 10:00 Stool Bacterial BEE 11/08/24 Logged Culture 22:33 Hepatitis B Surface LAB 11/09/24 Logged Antigen 02:53 Hepatitis C Antibody LAB 11/09/24 Logged 02:53 * Gi Dvh Crane Manager CONS 11/09/24 Verified 04:15 Date of Service: November 08, 2024 Billing Provider: JASS CASTREJON Common Visit Codes: [id number] INP/OBS CARE (MOD) JASS CASTREJON November 09, 2024 04:19
[2024-11-09 04:54] LABS: Basophils # (auto) 0 10 ^3/uL (0-0.2); Basophils % (auto) 0.6 % (0.0-2.0); Eosinophils # (auto) 0.1 10 ^3/uL (0-0.8); Eosinophils % (auto) 1.9 % (0.0-7.0); Hematocrit 38.4 % (36.0-46.0); Mean Corpuscular Hemoglobin 33.3 pg (28.0-32.0); Mean Corpuscular Hgb Conc. 33.7 g/dL (32.0-36.0); Mean Corpuscular Volume 98.8 fL (80.0-100.0); Monocytes # (auto) 0.7 10 ^3/uL (0-1.3); Monocytes % (auto) 9.8 % (0.0-12.0); Neutrophils # (auto) 3.7 10 ^3/uL (1.6-8.6); Neutrophils % (auto) 48.7 % (37.0-80.0); Nucleated Red Blood Cells % 0.1 %; Platelet Count (auto) 178 10^3/uL (140-450); Red Blood Cells 3.89 10^6/uL (4.0-5.20); White Blood Cell 7.7 10^3/uL (4.4-10.8)
[2024-11-09 05:02] LABS: Chloride 106 mmol/L (98-107); Potassium 3.7 mmol/L (3.5-5.1); Sodium 142 mmol/L (136-145)
[2024-11-09 05:03] LABS: Anion Gap 11 (5-15); Carbon Dioxide 25 mmol/L (20-31)
[2024-11-09 05:05] LABS: Calcium 8.5 mg/dL (8.7-10.4)
[2024-11-09 05:08] LABS: BUN/Creatinine Ratio 10.6 (10.0-20.0); Blood Urea Nitrogen 14 mg/dL (9-23); Glucose 90 mg/dL (74-106)
[2024-11-09 05:18] VITALS: BP 119/56; PULSE 67; RESP 18; TEMP 97.9; O2SAT 97
[2024-11-09 08:34] VITALS: BP 116/42; PULSE 68; RESP 18; TEMP 98.1; O2SAT 96
[2024-11-09] MEDS: ACETAMINOPHEN 325 MG TAB PO PRN (08:39)
[2024-11-09] MEDS: PANTOPRAZOLE 40 MG/10 ML VIAL INJ IV SCH (08:58)
[2024-11-09] MEDS: LOSARTAN POTASSIUM 50 MG TAB PO SCH (08:59)
[2024-11-09] MEDS: GABAPENTIN 300 MG CAP PO SCH (08:59)
[2024-11-09] MEDS: ISOSORBIDE DINITRATE 10 MG TAB PO SCH (10:04)
[2024-11-09] MEDS ORDERED: SODIUM CHLORIDE LOCK 0 ML ONE (12:52)
[2024-11-09] MEDS ORDERED: diphenhdrAMINE HCL 50 MG/1 ML VL ONE (12:52)
[2024-11-09] MEDS ORDERED: LIDOCAINE VISCOUS 2% 15ML UD ONE (12:52)
[2024-11-09] MEDS ORDERED: MIDAZOLAM HCL 5 MG/ML-1ML VIAL ONE (12:52)
[2024-11-09] MEDS ORDERED: fentaNYL CITRATE 100 MCG/2 ML VL ONE (12:53)
--- NOTE | 2024-11-09 12:59 | DVHINCON2 ---
GI Consult Consult Note GI consult note Date of Consultation: 11/09/2024 Chief Complaint: Abdominal pain Referring Physician: Sin NARAYANAN H&P: 64-year-old female present to to ER for abdominal pain, which is worse in the last two days. Patient admits to having similar pain for the past three months almost every day and has decreased appetite. Patient also complaining of nausea and vomiting, denies hematemesis. Patient has history of GERD, treated with PPI but that does not seem to be helping her. Status post EGD two years ago Patient also complaining of diarrhea on and off for three months, worse some days, has noticed her stool from being black to dark stool. Denies red blood in stool. Status post colonoscopy two years ago with polyp removal Patient has been treated with Ozempic for two years now Patient denies being on blood thinners Past Medical History: GERD, dyslipidemia, liver disease, diabetes mellitus Past Surgical History: Hysterectomy and cholecystectomy Social History: NO smoking, drinking ETOH and use of illegal drugs. Family History: Noncontributory Review of Systems: Constitutional: no fever, chill, weight loss HEENT: no eye pain, no hearing loss, no oral lesion, no scleral icterus Heart: no chest pain, no chest pressure Lung: no cough, no dyspnea with exertion Abdomen: see HPI Physical exam: General: NAD, AAOX3 Chest: lung olivera clear to auscultation Heart: RRR, no murmur Abdomen:+ epigastric tenderness to palpation, +BS Labs: Labs Test 11/09/24 11:00 11/09/24 04:43 11/08/24 18:19 Range/Units POC Glucose 174 H 70-106 mg/dl White Blood Count 7.7 4.4-10.8 10^3/uL Red Blood Count 3.89 L 4.0-5.20 10^6/uL Hemoglobin 13.0 12.2-16.2 g/dL Hematocrit 38.4 36.0-46.0 % Mean Corpuscular Volume 98.8 80.0-100.0 fL Mean Corpuscular Hemoglobin 33.3 H 28.0-32.0 pg Mean Corpuscular Hemoglobin Concent 33.7 32.0-36.0 g/dL Red Cell Distribution Width 14.0 11.8-14.3 % Platelet Count 178 140-450 10^3/uL Mean Platelet Volume 9.7 6.9-10.8 fL Neutrophils (%) (Auto) 48.7 37.0-80.0 % Lymphocytes (%) (Auto) 39.0 10.0-50.0 % Monocytes (%) (Auto) 9.8 0.0-12.0 % Eosinophils (%) (Auto) 1.9 0.0-7.0 % Basophils (%) (Auto) 0.6 0.0-2.0 % Neutrophils # (Auto) 3.7 1.6-8.6 10 ^3/uL Lymphocytes # (Auto) 3.0 0.4-5.4 10 ^3/uL Monocytes # (Auto) 0.7 0-1.3 10 ^3/uL Eosinophils # (Auto) 0.1 0-0.8 10 ^3/uL Basophils # (Auto) 0 0-0.2 10 ^3/uL Nucleated Red Blood Cells 0.1 % Sodium Level 142 136-145 mmol/L Potassium Level 3.7 3.5-5.1 mmol/L Chloride Level 106 98-107 mmol/L Carbon Dioxide Level 25 20-31 mmol/L Anion Gap 11 5-15 Blood Urea Nitrogen 14 9-23 mg/dL Creatinine 1.32 H 0.550-1.02 mg/dL Glomerular Filtration Rate Calc 45 >90 mL/min BUN/Creatinine Ratio 10.6 10.0-20.0 Serum Glucose 90 74-106 mg/dL Calcium Level 8.5 L 8.7-10.4 mg/dL Prothrombin Time 12.0 H 9.3-11.8 sec Prothrombin Time INR 1.15 0.9-1.15 Activated Partial Thromboplast Time 25.5 24.5-34.5 SEC Total Bilirubin 0.7 0.2-1.0 mg/dL Aspartate Amino Transferase (AST) 48 H 13-40 U/L Alanine Aminotransferase (ALT) 26 7-40 U/L Alkaline Phosphatase 70 46-116 U/L Ammonia 20 11-32 umol/L Total Protein 6.6 5.7-8.2 g/dL Albumin 3.8 3.2-4.8 g/dL Lipase 36 12-53 U/L Imaging: CT abdomen pelvis IMPRESSION: Questionable minimal fat stranding adjacent to the pancreatic head. Recommend correlation with lipase. Assessment: Abdominal pain History of GERD Nausea and vomiting Plan: Discussed with Dr. Ferguson - Pt will be scheduled for an EGD today 11/09/2024. Pt was informed of the risks (bleeding, infection, perforation, reaction to sedation medications and cardiopulmonary arrest) and benefit and is agreeable to undergo the procedures. NPO Discussed plan with patient and RN Thank you for this consult Date of Service: November 09, 2024 Billing Provider: JAYLON LAL Common Visit Codes: CONSULT ONLY Consultation Codes: [id number] CONSULT <60MIN JAYLON LAL November 09, 2024 12:59
[2024-11-09 13:16] VITALS: BP 98/41; PULSE 65; TEMP 97.8; O2SAT 95
--- NOTE | 2024-11-09 14:31 | DVHPN2 ---
Reviewed: Care Plan, H&P, Labs, Medications, Previous Orders, Radiology Changes from previous H/P or p: No Changes Objective Vitals Vital Signs Date Time Temp Pulse Resp B/P (MAP) Pulse Ox O2 Delivery O2 Flow Rate FiO2 11/09/24 13:16 97.8 65 98/41 (60) 95 97.8 11/09/24 08:34 18 11/09/24 00:44 Room Air* 0 21 Intake/Output Intake and Output 11/09/24 07:00 Intake Total 50 ml Balance 50 ml Intake Oral 50 ml Medications Current Medications Medications Dose Ordered Sig/Sobia Route Start Time Stop Time Status Last Admin Dose Admin Isosorbide Dinitrate 20 mg BID PO 11/09/24 10:00 11/09/24 10:04 20 MG Atorvastatin Calcium 20 mg HS PO 11/09/24 22:00 Losartan Potassium 50 mg DAILY PO 11/09/24 10:00 11/09/24 08:59 50 MG Gabapentin 300 mg BID PO 11/09/24 10:00 11/09/24 08:59 300 MG Diagnostic Test (Pha) 1 strip Q6HR 11/09/24 00:00 11/09/24 12:57 1 STRIP Insulin Human Regular Q6HR SC 11/09/24 00:00 Dextrose 50 ml UD PRN IV 11/08/24 22:30 Acetaminophen/ Hydrocodone Bitart 1 tab Q4HP PRN PO 11/08/24 22:30 Ondansetron HCl 4 mg Q4HP PRN IV 11/08/24 22:30 Acetaminophen 650 mg Q6HP PRN PO 11/08/24 22:30 11/09/24 08:39 650 MG Morphine Sulfate 2 mg Q4HPRN PRN IV 11/08/24 22:30 Pantoprazole Sodium 40 mg DAILY IV 11/09/24 10:00 11/09/24 08:58 40 MG Laboratory Results Laboratory Tests 11/09/24 04:43 Chemistry Test 11/08/24 18:19 11/09/24 04:43 Albumin 3.8 g/dL (3.2-4.8) Calcium Level 8.6 mg/dL (8.7-10.4) L 8.5 mg/dL (8.7-10.4) L Total Protein 6.6 g/dL (5.7-8.2) Coagulation Test 11/08/24 18:19 Prothrombin Time 12.0 sec (9.3-11.8) H Prothrombin Time INR 1.15 (0.9-1.15) Activated Partial Thromboplast Time 25.5 SEC (24.5-34.5) Lipid panel Test 11/08/24 18:19 Lipase 36 U/L (12-53) LFT Test 11/08/24 18:19 Alanine Aminotransferase (ALT) 26 U/L (7-40) Alkaline Phosphatase 70 U/L (46-116) Aspartate Amino Transferase (AST) 48 U/L (13-40) H Total Bilirubin 0.7 mg/dL (0.2-1.0) Microbiology Microbiology Date/Time Source Procedure Growth Status 11/08/24 11:10 Stool Stool Culture - Preliminary Resulted 11/08/24 11:10 Stool Shiga Toxin I & II - Final Resulted Labs and/or images reviewed: Labs reviewed by me, Image(s) reviewed by me Assessment/Plan Assessment/Plan Abdominal pain nausea and vomiting: GI consult by Dr. Ferguson appreciated, patient getting EGD today Diabetes Hypercholesterolemia GERD Liver disease Plan discussed with: Patient Date of Service: November 09, 2024 Billing Provider: LUTHER LAL MD Common Visit Codes: [id number] INP/OBS CARE(HIGH) LUTHER LAL MD November 09, 2024 14:30
[2024-11-09 17:35] VITALS: BP 116/49; PULSE 67; RESP 18; TEMP 97.6; O2SAT 97
[2024-11-09 21:00] VITALS: BP 99/44; PULSE 66; RESP 20; TEMP 97.7; O2SAT 95
[2024-11-09] MEDS: SODIUM CHLORIDE 0.9% 1,000 ML IV SCH (21:40)
[2024-11-09] MEDS: ATORVASTATIN 20 MG TAB PO SCH (23:13)
[2024-11-10] VITALS (7 sets, daily range): BP systolic 120–147; BP diastolic 56–76; PULSE 62–75; RESP 13–19; TEMP 97.3–97.8; O2SAT 93–100
[2024-11-10] MEDS: HYDROcodone-ACET 5/325MG TAB PO PRN (01:26)
--- NOTE | 2024-11-10 08:27 | DVHPN2 ---
Reviewed: Care Plan, H&P, Labs, Medications, Previous Orders, Radiology Changes from previous H/P or p: No Changes Objective Vitals Vital Signs Date Time Temp Pulse Resp B/P (MAP) Pulse Ox O2 Delivery O2 Flow Rate FiO2 11/10/24 05:00 97.7 62 18 130/71 (90) 96 97.7 11/09/24 00:44 Room Air* 0 21 Intake/Output Intake and Output 11/10/24 07:00 Intake Total 150 ml Balance 150 ml IV Total 150 ml # Voids 1 Medications Current Medications Medications Dose Ordered Sig/Sobia Route Start Time Stop Time Status Last Admin Dose Admin Atorvastatin Calcium 20 mg HS PO 11/09/24 22:00 11/09/24 23:13 20 MG Gabapentin 300 mg BID PO 11/09/24 10:00 11/09/24 23:13 300 MG Diagnostic Test (Pha) 1 strip Q6HR 11/09/24 00:00 11/10/24 05:41 1 STRIP Insulin Human Regular Q6HR SC 11/09/24 00:00 Dextrose 50 ml UD PRN IV 11/08/24 22:30 Acetaminophen/ Hydrocodone Bitart 1 tab Q4HP PRN PO 11/08/24 22:30 11/10/24 01:26 1 TAB Ondansetron HCl 4 mg Q4HP PRN IV 11/08/24 22:30 Acetaminophen 650 mg Q6HP PRN PO 11/08/24 22:30 11/09/24 08:39 650 MG Morphine Sulfate 2 mg Q4HPRN PRN IV 11/08/24 22:30 Pantoprazole Sodium 40 mg DAILY IV 11/09/24 10:00 11/09/24 08:58 40 MG Sodium Chloride 1,000 ml @ 150 mls/hr Q6H40M IV 11/09/24 15:00 Laboratory Results Laboratory Tests 11/09/24 04:43 Microbiology Microbiology Date/Time Source Procedure Growth Status 11/08/24 11:10 Stool Stool Culture - Preliminary Resulted 11/08/24 11:10 Stool Shiga Toxin I & II - Final Resulted Labs and/or images reviewed: Labs reviewed by me, Image(s) reviewed by me Assessment/Plan Assessment/Plan Abdominal pain nausea and vomiting: GI consult by Dr. Ferguson appreciated, Acute hypotension resolved with IV fluids, will let GI Dr. Katia Ferguson that patient can proceed for EGD Diabetes Hypercholesterolemia GERD Liver disease Plan discussed with: Patient My Orders Orders - LUTHER LAL MD Procedure Category Date Status Time Sodium Chloride 0.9% PHA 11/09/24 In Process 15:00 Date of Service: November 10, 2024 Billing Provider: LUTHER LAL MD Common Visit Codes: [id number] INP/OBS CARE(HIGH) LUTHER LAL MD November 10, 2024 08:27
[2024-11-10] MEDS: MORPHINE SULFATE INJ 2 MG/ml SYRG IV PRN (09:48)
[2024-11-10 10:25] LABS: Hepatitis B Surface Antigen Negative (Negative)
[2024-11-10 10:44] LABS: Hepatitis C Antibody Negative (Negative)
[2024-11-10] MEDS ORDERED: METOCLOPRAMIDE HCL 5MG/ml INJ 2ml VIAL IV ONE (11:45)
[2024-11-10] MEDS ORDERED: HYDROmorphone HCL 2 MG/ML VL/or syr IV PRN (11:45)
[2024-11-10] MEDS ORDERED: hydrALAZINE HCL 20 MG/ML VL IV PRN (11:45)
[2024-11-10] MEDS ORDERED: ONDANSETRON HCL 4 MG/2 ML VIAL IV ONE (11:45)
[2024-11-10] MEDS ORDERED: LIDOCAINE 2% (LOCAL ANESTH.) PF 5ml SDV ONE (11:47)
[2024-11-10] MEDS ORDERED: METOCLOPRAMIDE HCL 5MG/ml INJ 2ml VIAL ONE (11:47)
[2024-11-10] MEDS ORDERED: PROPOFOL 10 MG/ML 20 ML IV ONE (11:47)
[2024-11-10] MEDS ORDERED: ONDANSETRON HCL 4 MG/2 ML VIAL ONE (11:47)
--- NOTE | 2024-11-10 12:41 | DVHOP2 ---
Operative Report DATE OF OPERATION: 11/10/24 PROCEDURE: Upper Endoscopy with biopsy. PREOPERATIVE INDICATION: The patient is a 64 -year-old female undergoing endoscopy for nausea vomiting and abdominal pain POSTOPERATIVE DIAGNOSES: 1. 1-2 cm sliding-type hiatal hernia with no significant erosive esophagitis 2. There was a 2 mm benign-appearing gastric fundic polyp that were seen and removed by cold biopsy forceps 3. Mild gastritis with some hyperemia erythema otherwise normal examination of the 2nd and 3rd part of the duodenum PROCEDURE PERFORMED BY: Rhea Ferguson GI NURSE: Santiago SCOPE: Olympus videoendoscope. ASA CLASS: 2 PREOPERATIVE MEDICATIONS: Mac sedation, Caden PROCEDURE IN DETAIL: After obtaining an informed consent, the patient was placed on left lateral decubitus position. The patient was then sedated with the above medications. A bite block was placed between her teeth. The endoscope was then passed through the oropharynx, into the esophagus, and through the stomach and pylorus up to the second and third part of the duodenum. The endoscope was then withdrawn. The 2nd and 3rd part of the duodenum and the duodenal bulb were normal. Duoden al biopsies were obtained The pre-pyloric area antrum and body showed mild gastritis with some mucosal edema and hyperemia. Gastric biopsies were obtained On retroflexed and the patient had a 2 mm benign-appearing gastric fundic polyp that were seen and removed by cold biopsy forceps Otherwise fundus cardia and angularis were normal. The endoscope was then withdrawn into the distal esophagus. Patient had a 1-2 cm sliding-type hiatal hernia with no significant erosive esophagitis The remaining distal proximal esophagus and oropharynx are unremarkable. The patient tolerated the procedure well without difficulty. COMPLICATIONS : None SPECIMENS: Duodenal biopsy Gastric polyp Gastric biopsies DISPOSITION: Transfer back to the floor Stable PLAN: 1. Await for biopsy result 2. Will place pt on Protonix 40 mg IV daily 3. Carafate 1 g p.o. b.i.d. 4. Zofran p.r.n. for nausea vomiting 5. Outpatient follow up with me in 4-6 weeks to review results and discuss further management including discussion for outpatient elective colonoscopy RHEA FERGUSON MD November 10, 2024 12:41
[2024-11-10] MEDS: SUCRALFATE 1 GM/10 ML ORAL SUSP PO SCH (17:31)
[2024-11-10 18:09] LABS: Urine Bacteria FEW /hpf (None Seen); Urine Blood Negative /uL (Negative); Urine Clarity Turbid (Clear); Urine Color Yellow (Yellow); Urine Hyaline Cast FEW /lpf (0 - 2); Urine Mucus FEW (None Seen); Urine Protein, UAD Negative (Negative); Urine Specific Gravity 1.016 (1.001-1.035); Urine Squamous Epithelial Cell FEW /hpf (<5); Urine Urobilinogen Normal (Negative); Urine WBC 137 /HPF (0-5); Urine WBC Clumps PRESENT /hpf (None Seen)
[2024-11-10] MEDS: MORPHINE SULFATE 4 MG/ML SYR/VIAL IV PRN (18:12)
[2024-11-11 01:00] VITALS: BP 137/68; PULSE 70; RESP 18; TEMP 98.1; O2SAT 93
[2024-11-11 05:00] VITALS: BP 104/68; PULSE 72; RESP 17; TEMP 98.1; O2SAT 99
[2024-11-11] MEDS ORDERED: SUCR1TAB31 PO (08:46)
[2024-11-11] MEDS ORDERED: PANT40T PO (08:46)
--- NOTE | 2024-11-11 08:47 | DVHPN2 ---
Reviewed: Care Plan, H&P, Labs, Medications, Previous Orders, Radiology Changes from previous H/P or p: No Changes Objective Vitals Vital Signs Date Time Temp Pulse Resp B/P (MAP) Pulse Ox O2 Delivery O2 Flow Rate FiO2 11/11/24 05:00 98.1 72 17 104/68 (80) 99 98.1 11/10/24 20:00 Room Air* 0 21 Intake/Output Intake and Output 11/11/24 07:00 Intake Total 1150 ml Balance 1150 ml Intake Oral 1050 ml IV Total 100 ml # Voids 8 Medications Current Medications Medications Dose Ordered Sig/Sobia Route Start Time Stop Time Status Last Admin Dose Admin Atorvastatin Calcium 20 mg HS PO 11/09/24 22:00 11/10/24 22:52 20 MG Gabapentin 300 mg BID PO 11/09/24 10:00 11/10/24 22:52 300 MG Diagnostic Test (Pha) 1 strip Q6HR 11/09/24 00:00 11/11/24 06:00 1 STRIP Insulin Human Regular Q6HR SC 11/09/24 00:00 11/11/24 06:33 2 UNITS Dextrose 50 ml UD PRN IV 11/08/24 22:30 Acetaminophen/ Hydrocodone Bitart 1 tab Q4HP PRN PO 11/08/24 22:30 11/11/24 05:38 1 TAB Ondansetron HCl 4 mg Q4HP PRN IV 11/08/24 22:30 Acetaminophen 650 mg Q6HP PRN PO 11/08/24 22:30 11/09/24 08:39 650 MG Pantoprazole Sodium 40 mg DAILY IV 11/09/24 10:00 11/10/24 09:47 40 MG Sodium Chloride 1,000 ml @ 150 mls/hr Q6H40M IV 11/09/24 15:00 11/10/24 17:40 150 MLS/HR Sucralfate 1 gm QID@0600,1130,1700,2200 PO 11/10/24 17:00 11/11/24 05:37 1 GM Morphine Sulfate 2 mg Q4HPRN PRN IV 11/10/24 18:00 11/10/24 23:13 2 MG Laboratory Results Laboratory Tests 11/09/24 04:43 Urinalysis Test 11/10/24 17:30 Urine Color Yellow (Yellow) Urine Clarity Turbid (Clear) H Urine pH 5.0 (5.0-9.0) Urine Specific [place] 1.016 (1.001-1.035) Urine Protein Negative (Negative) Urine Ketones Negative (Negative) Urine Blood Negative /uL (Negative) Urine Nitrite 2+ (Negative) H Urine Bilirubin Negative (Negative) Urine Urobilinogen Normal mg/dL (Negative) Urine Leukocyte Esterase 3+ /uL (Negative) Urine RBC 4 /hpf (0 - 4) Urine WBC Clumps Present /hpf (None Seen) Urine Microscopic WBC 137 /HPF (0-5) H Urine Squamous Epithelial Cells Few /hpf (<5) Urine Bacteria Few /hpf (None Seen) H Urine Hyaline Casts Few /lpf (0 - 2) Urine Mucus Few (None Seen) Urine Glucose 1+ mg/dL (Normal) H Microbiology Microbiology Date/Time Source Procedure Growth Status 11/08/24 11:10 Stool Stool Culture - Final Complete 11/08/24 11:10 Stool Shiga Toxin I & II - Final Complete Labs and/or images reviewed: Labs reviewed by me, Image(s) reviewed by me Assessment/Plan Assessment/Plan Abdominal pain nausea and vomiting: Mild gastritis and two benign polyps in the stomach which were removed by EGD by Dr. Katia Ferguson, biopsy result pending placed on pantoprazole and carafate Acute hypotension resolved Diabetes Hypercholesterolemia GERD Liver disease Plan discussed with: Patient Date of Service: November 11, 2024 Billing Provider: LUTHER LAL MD Common Visit Codes: [id number] INP/OBS CARE(HIGH) LUTHER LAL MD November 11, 2024 08:47
[2024-11-11 09:00] VITALS: BP 130/68; PULSE 78; RESP 18; TEMP 97.2; O2SAT 94
== END 2024-11-11 11:00 | disposition home or self-care (01) | DRG 241 ==
LOC: ER 18:03 → EDBD 18:03 → MERGE 22:25 → OVERFLOW 22:25 → CENTRAL 11-09 23:59
PROVIDERS: ADMIT Family Medicine; ATTEND Family Medicine
PROC: 0DB68ZX Excision of Stomach, Via Natural or Artificial Opening Endoscopic, Diagnostic (ICD-10-PCS; 2024-11-10)
PROC: 0DB98ZX Excision of Duodenum, Via Natural or Artificial Opening Endoscopic, Diagnostic (ICD-10-PCS; principal; 2024-11-10 12:23)
DX: K29.70 Gastritis, unspecified, without bleeding (principal); N17.0 Acute kidney failure with tubular necrosis; I95.9 Hypotension, unspecified; E11.9 Type 2 diabetes mellitus without complications; K76.9 Liver disease, unspecified; K31.7 Polyp of stomach and duodenum; K21.9 Gastro-esophageal reflux disease without esophagitis; E87.6 Hypokalemia; E78.00 Pure hypercholesterolemia, unspecified; K44.9 Diaphragmatic hernia without obstruction or gangrene; K31.89 Other diseases of stomach and duodenum; Z90.710 Acquired absence of both cervix and uterus; Z90.49 Acquired absence of other specified parts of digestive tract
CPT/HCPCS: 36415; 43239; 74176; 80048; 80053; 81001; 82140; 82962; 83690; 85025; 85610; 85730; 86803; 87045; 87340; 87427; 93005; 99291; G0378; J1815; J2003; J2250; J2405; J2470; J2704; J3480

== ENCOUNTER 2025-05-26 21:34 | Emergency (ER) | payer MEDICAID ==
[~2025-05-26] VITALS: Ht 162.6 cm; Wt 97.7 kg
[~2025-05-26 21:34] MED LIST changes: +PANT40T PO; +SUCR1TAB31 PO
[2025-05-26 21:53] VITALS: TEMP 97.7
--- NOTE | 2025-05-26 21:54 | ED.PDOC ---
History of Present Illness HPI Comments 65-year-old female who came to ER via EMS for fall injury. Patient states she has been feeling dizzy for the past few days. Patient went to the kitchen earlier, she felt dizzy, both her legs gave way, and she fell down hitting her chest on the kitchen counter, she fell backwards, hitting the back of her head on the floor. Possible loss of consciousness. Chief Complaint: Fall injury Time Seen by MD: 21:54 Primary Care Provider: UNK Reviewed Notes: Nurses Notes Allergies: Coded Allergies: NO KNOWN ALLERGIES (Unverified , 11/14/12) Home Meds Active Scripts Sucralfate (CARAFATE) 1 Gm Tab, 1 GM PO QID, #120 TAB Prov:LUTHER LAL MD 11/11/24 Pantoprazole Sodium Sesquihydr (Pantoprazole Sodium) 40 Mg Tab, 40 MG PO BID, #60 TAB Prov:LUTHER LAL MD 11/11/24 Metoclopramide Hcl (Reglan) 5 Mg Tab, 5 MG PO Q8HPRN PRN for 3 Days, #9 TAB Prov:CARLIE GOMEZ MD 03/26/24 Ibuprofen Micronized (Ibuprofen) 400 Mg Tab, 400 MG PO Q6HP PRN for 3 Days, #12 TAB Prov:CARLIE GOMEZ MD 03/26/24 Acetaminophen (Acetaminophen) 325 Mg Tab, 650 MG PO Q6HR for 10 Days, #80 TAB Prov:CARLIE GOMEZ MD 03/26/24 Cephalexin (KEFLEX CAPSULE) 250 Mg Cp, 500 MG PO TID for 10 Days, #30 CAP Prov:GAVINO GUEVARA MD 03/23/24 Reported Medications Omeprazole (Omeprazole Dr) 20 Mg Cap, 20 MG PO DAILY 03/24/24 Isosorbide Mononitrate (ISMO TABLET) 20 Mg Tb, 20 MG PO DAILY 03/24/24 Zolpidem Tartrate (Zolpidem Tartrate) 10 Mg Tab, 10 MG PO QHSP PRN 03/24/24 Atorvastatin Calcium (ATORVASTATIN CALCIUM) 20 Mg Tab, 20 MG PO HS 03/24/24 Hctz (Hydrochlorothiazide) 25 Mg Tab, 25 MG PO DAILY 03/24/24 Losartan Potassium (Losartan Potassium) 50 Mg Tab, 50 MG PO DAILY 03/24/24 [Pravastatin Sodium 40 Mg Tab] No Conflict Check 11/14/12 [[id number] Mg] (Lisinopril) 40 MG TAB No Conflict Check, MG 11/14/12 [Metformin [id number] Mg] (Metformin Hcl) 1000 MG TAB No Conflict Check, MG 11/14/12 [Humulin 70/30 P70/30] (Humulin 70/30 Pen) 70/30 INJ No Conflict Check 11/14/12 Information Source: Patient Mode of Arrival: Ambulatory Severity: Moderate Past Medical History PAST MEDICAL HISTORY: DM, High Lipids, HTN Surgical History: Cholecystectomy, Hysterectomy INFORMATION SYSTEMS SECURITY SPECIALIST History: Denies all INFORMATION SYSTEMS SECURITY SPECIALIST Hx Family History Family History: Reviewed,noncontributory to illness, No family hx of DM, No family hx of Heart blu, No family hx of HTN, Family hx of Cancer Social History Smoker: Non-Smoker Alcohol: Denies ETOH Use Drugs: Denies Drug Use Lives In: Home Constitutional: denies: chills, diaphoresis, fatigue, fever, malaise, sweats, weakness, others EENTM: denies: blurred vision, double vision, ear bleeding, ear discharge, ear drainage, ear pain, ear ringing, eye pain, eye redness, hearing loss, mouth pain, mouth swelling, nasal discharge, nose bleeding, nose congestion, nose pain, photophobia, tearing, throat pain, throat swelling, voice changes, others Respiratory: denies: cough, hemoptysis, orthopnea, SOB at rest, shortness of breath, SOB with excertion, stridor, wheezing, others Cardiovascular: reports: chest pain; denies: dizzy spells, diaphoresis, Dyspnea on exertion, edema, irregular heart beat, left arm pain, lightheadedness, palpitations, PND, syncope, others Gastrointestinal: denies: abdomen distended, abdominal pain, blood streaked bowels, constipated, diarrhea, dysphagia, difficulty swallowing, hematemesis, melena, nausea, poor appetite, poor fluid intake, rectal bleeding, rectal pain, vomiting, others Neurological: reports: dizziness, fainting, headache; denies: left sided numbness, left sided weakness, numbness, paresthesia, pre-existing deficit, right sided numbness, right sided weakness, seizure, speech problems, tingling, tremors, weakness, others Musculoskeletal: reports: neck pain; denies: back pain, gout, joint pain, joint swelling, muscle pain, muscle stiffness, others Integumetry: denies: bruises, change in color, change in hair/nails, dryness, laceration, lesions, lumps, rash, wounds, others Allergic/Immunocompromised: denies: Difficulty Healing, Frequent Infections, Hives, Itching, others Hematologic/Lymphatic: denies: anemia, blood clots, easy bleeding, easy bruising, swollen glands, others Endocrine: denies: excessive hunger, excessive sweating, excessive thirst, excessive urination, flushing, intolerance to cold, intolerance to heat, unexplained weight gain, unexplained weight loss, others Psychiatric: denies: anxiety, bipolar disorder, depression, hopeless, panic disorder, schizophrenia, sleepless, suicidal, others Physical Exam General Appearance: No Apparent Distress, Normal HEENT: Normal ENT Inspection, Pharynx Normal, TMs Normal Neck: Full Range of Motion, Non-Tender, Normal, Normal Inspection Respiratory: Chest Non-Tender, Lungs Clear, No Accessory Muscle Use, No Respiratory Distress, Normal Breath Sounds Cardiovascular: No Edema, No JVD, No Murmur, No Gallop, Normal Peripheral Pulses, Regular Rate/Rhythm Breast Exam: Deferred Gastrointestinal: No Organomegaly, Non Tender, No Pulsatile Mass, Normal Bowel Sounds, Soft Genitalia: Deferred Pelvic: Deferred Rectal: Deferred Extremities: No calf tenderness, Normal capillary refill, Normal inspection, Normal range of motion, Non-tender, No pedal edema Musculoskeletal : Apperance: Normal Neurologic: Alert, shared services and outsourcing manager II-XII nml as Tested, No Motor Deficits, Normal Affect, Normal Mood, No Sensory Deficits Cerebellar Function: Normal Reflexes: Normal Skin: Dry, Normal Color, Warm Lymphatic: No Adenopathy Was a procedure done? Was a procedure done?: No Differential Dx Considerations may include: Anemia, electrolyte imbalance, syncope, fall injury, CVA, TIA X-Ray, Labs, Meds, VS Vital Signs Date Time Temp Pulse Resp B/P (MAP) Pulse Ox O2 Delivery O2 Flow Rate FiO2 05/26/25 23:49 61 18 104/47 (66) 97 05/26/25 23:45 69 13 104/47 05/26/25 23:15 64 16 102/41 05/26/25 22:58 64 96 Room Air* 0 21 05/26/25 21:53 97.7 70 18 115/56 (75) 94 97.7 05/26/25 21:50 97.9 74 16 136/68 95 97.9 Lab Test 05/26/25 21:51 Range/Units White Blood Count 8.0 4.4-10.8 10^3/uL Red Blood Count 3.83 L 4.0-5.20 10^6/uL Hemoglobin 11.6 L 12.2-16.2 g/dL Hematocrit 34.7 L 36.0-46.0 % Mean Corpuscular Volume 90.5 80.0-100.0 fL Mean Corpuscular Hemoglobin 30.3 28.0-32.0 pg Mean Corpuscular Hemoglobin Concent 33.5 32.0-36.0 g/dL Red Cell Distribution Width 15.5 H 11.8-14.3 % Platelet Count 193 140-450 10^3/uL Mean Platelet Volume 9.3 6.9-10.8 fL Neutrophils (%) (Auto) 43.8 37.0-80.0 % Lymphocytes (%) (Auto) 41.7 10.0-50.0 % Monocytes (%) (Auto) 12.2 H 0.0-12.0 % Eosinophils (%) (Auto) 1.9 0.0-7.0 % Basophils (%) (Auto) 0.4 0.0-2.0 % Neutrophils # (Auto) 3.5 1.6-8.6 10 ^3/uL Lymphocytes # (Auto) 3.3 0.4-5.4 10 ^3/uL Monocytes # (Auto) 1.0 0-1.3 10 ^3/uL Eosinophils # (Auto) 0.2 0-0.8 10 ^3/uL Basophils # (Auto) 0 0-0.2 10 ^3/uL Nucleated Red Blood Cells 0.0 % Sodium Level 143 136-145 mmol/L Potassium Level 3.6 3.5-5.1 mmol/L Chloride Level 108 H 98-107 mmol/L Carbon Dioxide Level 24 20-31 mmol/L Anion Gap 11 5-15 Blood Urea Nitrogen 15 9-23 mg/dL Creatinine 0.96 0.550-1.02 mg/dL Glomerular Filtration Rate Calc 66 >90 mL/min BUN/Creatinine Ratio 15.6 10.0-20.0 Serum Glucose 96 74-106 mg/dL Calcium Level 9.6 8.7-10.4 mg/dL Magnesium Level 1.7 1.6-2.6 mg/dL Total Bilirubin 0.4 0.2-1.0 mg/dL Aspartate Amino Transferase (AST) 84 H 13-40 U/L Alanine Aminotransferase (ALT) 46 H 7-40 U/L Alkaline Phosphatase 134 H 46-116 U/L Troponin I High Sensitivity < 3 L </=34 ng/L Total Protein 7.1 5.7-8.2 g/dL Albumin 3.8 3.2-4.8 g/dL Current Medications Medications (Trade) Dose Ordered Sig/Sobia Route Start Time Stop Time Status Last Admin Morphine Sulfate 4 mg ONCE ONCE IV 05/26/25 21:45 05/26/25 21:46 DC 05/26/25 23:15 Ondansetron HCl (Zofran) 4 mg ONCE ONCE IV 05/26/25 21:45 05/26/25 21:46 DC 05/26/25 23:16 EXAM: CT HEAD WITHOUT CONTRAST INDICATION: head injury pain TECHNIQUE: CT of the head without intravenous contrast. Radiation Dose : 1. Head: CT Dose: CTDI volume is 68.3 mGy. Dose-length product is 1346.3 mGy*cm The dose indicators for CT are the volume Computed Tomography (CT) Dose Index (CTDIvol) and the Dose Length Product (DLP), and are measured in units of mGy and mGy-cm, respectively. These indicators are not patient dose, but values generated from the CT scanner acquisition factors. The report includes radiation exposure data for exposures received during this examination. COMPARISON: CT HEAD WITHOUT CONTRAST on DOS: 03/24/24 FINDINGS: Motion and streak artifact degrades fine detail. The cerebral parenchyma appears to be normal configuration and attenuation. The ventricles, cisterns, and sulci appear age-appropriate. There is no evidence for acute territorial infarct, hemorrhage, or mass effect. Bilateral lens implants. Tiny polyp versus retention cyst within the right maxillary antrum. Mild mucosal thickening within the left maxillary antrum and ethmoid air cells. The mastoid air cells are clear. The soft tissues and osseous structures appear within normal limits. IMPRESSION: 1. No acute traumatic intracranial abnormality. Radiation optimization: All CT scans at this facility use at least one of these dose optimization techniques: automated exposure control mA and/or kV adjustment per patient size (includes targeted exams where dose is matched to clinical indication) or iterative reconstruction. Time of 1ST Reevaluation: 21:43 Reevaluation 1ST: Unchanged Patient Education/Counseling: Diagnosis, Treatment Family Education/Counseling: No Family Present SEPSIS Sepsis Screen Physician Orders Electrocardigram (05/26/25 21:43) Head Without Contrast (05/26/25 21:43) Cervical Without Contrast (05/26/25 21:43) Chest Portable (05/26/25 21:43) Vital Signs Date Time Temp Pulse Resp B/P (MAP) Pulse Ox O2 Delivery O2 Flow Rate FiO2 05/26/25 23:49 61 18 104/47 (66) 97 05/26/25 23:45 69 13 104/47 05/26/25 23:15 64 16 102/41 05/26/25 22:58 64 96 Room Air* 0 21 05/26/25 21:53 97.7 70 18 115/56 (75) 94 97.7 05/26/25 21:50 97.9 74 16 136/68 95 97.9 Laboratory Tests Test 05/26/25 21:51 White Blood Count 8.0 10^3/uL (4.4-10.8) Medications Medications Dose Ordered Sig/Sobia Route Start Time Stop Time Status Last Admin Dose Admin Morphine Sulfate 4 mg ONCE ONCE IV 05/26/25 21:45 05/26/25 21:46 DC 05/26/25 23:15 Ondansetron HCl 4 mg ONCE ONCE IV 05/26/25 21:45 05/26/25 21:46 DC 05/26/25 23:16 Departure 1 Departure Time of Disposition: 23:00 Impression: Primary Impression: Chest wall contusion Additional Impressions: Head injury Syncope and collapse Disposition: 01 HOME / SELF CARE / HOMELESS Condition: Stable Discharged With: Self Critical Care Note Critical Care Time?: No Stability Stability form required: No Heart Score Heart Score: Heart Score Response (Comments) Value History N/A 0 EKG N/A 0 Age N/A 0 Risk Factors N/A 0 Troponin N/A 0 Total 0 I personally scribed for DEACON ROSENBERG MD ([email or web address]) on 05/26/25 at 21:54. Electronically submitted by Dread Ramirez ([facility]). I personally scribed for DEACON ROSENBERG MD ([email or web address]) on 05/26/25 at 22:50. Electronically submitted by Dread Ramirez ([facility]). DEACON ROSENBERG MD May 26, 2025 21:54
[2025-05-26 22:21] LABS: Hematocrit 34.7 % (36.0-46.0); Hemoglobin 11.6 g/dL (12.2-16.2); Mean Corpuscular Hemoglobin 30.3 pg (28.0-32.0); Mean Corpuscular Volume 90.5 fL (80.0-100.0); Nucleated Red Blood Cells % 0.0 %
[2025-05-26 22:42] LABS: Albumin 3.8 g/dL (3.2-4.8); Anion Gap 11 (5-15); BUN/Creatinine Ratio 15.6 (10.0-20.0); Blood Urea Nitrogen 15 mg/dL (9-23); Calcium 9.6 mg/dL (8.7-10.4); Carbon Dioxide 24 mmol/L (20-31); Glucose 96 mg/dL (74-106); Magnesium 1.7 mg/dL (1.6-2.6); Potassium 3.6 mmol/L (3.5-5.1); Sodium 143 mmol/L (136-145); Total Protein 7.1 g/dL (5.7-8.2)
--- NOTE | 2025-05-26 22:42 | DVH ---
EXAM: CT HEAD WITHOUT CONTRAST INDICATION: head injury pain TECHNIQUE: CT of the head without intravenous contrast. Radiation Dose : 1. Head: CT Dose: CTDI volume is 68.3 mGy. Dose-length product is 1346.3 mGy*cm The dose indicators for CT are the volume Computed Tomography (CT) Dose Index (CTDIvol) and the Dose Length Product (DLP), and are measured in units of mGy and mGy-cm, respectively. These indicators are not patient dose, but values generated from the CT scanner acquisition factors. The report includes radiation exposure data for exposures received during this examination. COMPARISON: CT HEAD WITHOUT CONTRAST on DOS: 03/24/24 FINDINGS: Motion and streak artifact degrades fine detail. The cerebral parenchyma appears to be normal configuration and attenuation. The ventricles, cisterns, and sulci appear age-appropriate. There is no evidence for acute territorial infarct, hemorrhage, or mass effect. Bilateral lens implants. Tiny polyp versus retention cyst within the right maxillary antrum. Mild mucosal thickening within the left maxillary antrum and ethmoid air cells. The mastoid air cells are clear. The soft tissues and osseous structures appear within normal limits. IMPRESSION: 1. No acute traumatic intracranial abnormality. Radiation optimization: All CT scans at this facility use at least one of these dose optimization techniques: automated exposure control mA and/or kV adjustment per patient size (includes targeted exams where dose is matched to clinical indication) or iterative reconstruction.
[2025-05-26 22:43] LABS: Bilirubin, Total 0.4 mg/dL (0.2-1.0)
--- NOTE | 2025-05-26 22:44 | DVH ---
CLINICAL HISTORY: pain injury TECHNIQUE: CT exam of the cervical spine was performed without intravenous contrast. This exam was performed according to our departmental dose optimization program. Up-to-date CT equipment and radiation dose reduction techniques are utilized as appropriate. CTDI 25.6 mGy DLP 664.98 mGy.cm COMPARISON: CT CERVICAL WITHOUT CONTRAST on DOS: 03/24/24 FINDINGS: No acute displaced fracture. Mild endplate osteophytosis. The intervertebral disc heights are preserved. Mild uncovertebral and facet hypertrophy without significant neural foraminal narrowing. The paraspinal soft tissues are unremarkable. IMPRESSION: 1. No acute displaced fracture. 2. Mild degenerative changes of the cervical spine as detailed.
--- NOTE | 2025-05-26 22:44 | DVH ---
CHEST RADIOGRAPH INDICATION: chest pain TECHNIQUE: Single frontal view of the chest was obtained. COMPARISON: None FINDINGS: Mild pulmonary vascular congestion. No significant pleural effusion. No pneumothorax. Mildly enlarged cardiomediastinal silhouette. IMPRESSION: Mild pulmonary vascular congestion.
[2025-05-26 22:45] LABS: Alanine Aminotransferase 46 U/L (7-40); Alkaline Phosphatase 134 U/L (46-116); Chloride 108 mmol/L (98-107)
[2025-05-26 22:58] VITALS: PULSE 64; O2SAT 96
[2025-05-26] MEDS: MORPHINE SULFATE 4 MG/ML SYR/VIAL IV ONE (23:15)
[2025-05-26] MEDS: ONDANSETRON HCL 4 MG/2 ML VIAL IV ONE (23:16)
[2025-05-26 23:49] VITALS: BP 104/47; PULSE 61; RESP 18; O2SAT 97
== END 2025-05-27 00:35 | disposition home or self-care (01) ==
LOC: EDBD 21:34 → ER 21:34 → EDUNIT# 21:34 → ER 05-27 00:35
DX: S20.219A Contusion of unspecified front wall of thorax, initial encounter (principal); S09.8XXA Other specified injuries of head, initial encounter; R55 Syncope and collapse; I10 Essential (primary) hypertension; E11.9 Type 2 diabetes mellitus without complications; E78.5 Hyperlipidemia, unspecified; Z79.899 Other long term (current) drug therapy; Z90.49 Acquired absence of other specified parts of digestive tract; Z90.710 Acquired absence of both cervix and uterus; W18.39XA Other fall on same level, initial encounter; Y93.89 Activity, other specified; Y92.000 Kitchen of unspecified non-institutional (private) residence as the place of occurrence of the external cause; Y99.8 Other external cause status
CPT/HCPCS: 36415; 70450; 71045; 72125; 80053; 83735; 84484; 85025; 96374; 96375; 99285; J2270; J2405